=== PATIENT | male | born 1970 | race Caucasian/White ===

== ENCOUNTER 2018-03-16 13:33 | Emergency (ER) | payer SELFPAY ==
[2018-03-16 14:30] LABS: #Eosinphils 0.1 thou/uL (0.0-0.7); #Lymphocytes 2.4 thou/uL (1.20-3.40); #Monocytes 0.4 thou/uL (0.11-0.59); #Neutrophils 4.5 thou/uL (1.40-6.50); %Basophils 0.5 % (0.0-1.0); %Eosinophils 0.7 % (0.0-10.0); %Lymphocytes 32.1 % (21.0-51.0); %Neutrophils 60.7 % (42.0-75.0); Hemoglobin 14.9 g/dL (14.0-18.0); Mean Corpuscular HGB CONC 34.3 g/dL (32.0-36.0); Mean Corpuscular Hemoglobin 31.8 pg (27.0-31.0); Mean Corpuscular Volume 92.7 fL (78.0-98.0); Mean Platelet Volume 8.8 fL (7.4-10.4); Platelet Count 213 thou/uL (130-400); RBC Distribution Width 11.2 % (11.5-14.5); Red Blood Cell (RBC) Count 4.69 mill/uL (4.70-6.10); White Blood Cell (WBC) Count 7.4 thou/uL (4.8-10.8)
[2018-03-16 15:05] LABS: ALT (SGPT) 31 U/L (8-55); AST (SGOT) 15 U/L (5-34); Albumin 4.4 g/dL (3.5-5.0); Alkaline Phosphatase 125 U/L (40-150); Anion Gap 14 mmol/L (10-20); BUN (Urea Nitrogen) 10 mg/dL (8.9-20.6); Bilirubin, Total 0.4 mg/dL (0.2-1.2); Calc. Creatinine Clearance 0 mL/min (70-130); Calcium 9.8 mg/dL (7.8-10.44); Carbon Dioxide 26 mmol/L (22-29); Chloride 103 mmol/L (98-107); Estimated GFR-MDRD 51; Globulin 3.4 g/dL (2.4-3.5); Glucose 98 mg/dL (70-105); Potassium 4.3 mmol/L (3.5-5.1); Protein, Total 7.8 g/dL (6.0-8.3); Sodium 139 mmol/L (136-145)
--- NOTE | 2018-03-16 17:06 | MRI ---
MRI OF THE LUMBAR SPINE WITHOUT CONTRAST 03/16/18 HISTORY: Difficulty walking, left lower extremity numbness, pain. TECHNIQUE: Multiplanar and multisequence MR imaging of lumbar spine obtained without contrast. FINDINGS: The sagittal STIR imaging demonstrates no focal area of osseous marrow edema. Superficial round lesion seen within the subcutaneous soft tissues posteriorly on the right suggestin g a probable sebaceous cyst measuring 1.4 cm at the axial level of the lumbosacral junction. 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 Sagittal STIR imagin g demonstrates no focal area of osseous marrow edema. No anterolisthesis or retrolisthesis is noted w ithin the lumbar spine. T12-L1: Mild bilateral facet hypertrophy. Mild central canal stenosis with no neural foraminal stenos is. Intervertebral disc height and signal intensity within normal limits. L1-2: Mild bilateral facet hypertrophy. Mild central canal stenosis with no neural foraminal stenosis . Intervertebral disc height and signal intensity within normal limits. L2-3: Mild bilateral facet hypertrophy. Mild central canal stenosis. No neural foraminal stenosis. In tervertebral disc height and signal intensity within normal limits. L3-4: Mild bilateral facet hypertrophy. Mild central canal stenosis. No neural foraminal stenosis. Th e intervertebral disc height and signal intensity within normal limits. L4-5: Disc space narrowing, disc desiccation and disc bulge noted. There is a disc extrusion with inf erior migration in the left paracentral/left foraminal region. This extends into the left lateral rec ess with severe left lateral recess stenosis. Herniated disc material measures approximately 1.1 cm t ransverse dimension, 1 cm AP dimension and 1.4 cm craniocaudal dimension. In addition to the severe l eft lateral recess stenosis, there is mild left neural foraminal stenosis. L5-S1: There is disc space narrowing and disc desiccation and a central annular tear. No significant central canal stenosis. Mild bilateral facet hypertrophy. Mild bilateral neural foraminal stenosis. The imaged retroperitoneal structures demonstrate no acute findings. IMPRESSION: Left paracentral/left foraminal disc extrusion on the left at L4-5 with severe left lateral recess st enosis. POS: [facility]
[2018-03-16] MEDS ORDERED: Dexamethasone 10 MG/ML VIAL ONE (17:21)
[2018-03-16 17:34] LABS: Bilirubin Negative (Negative); Blood, Urine Negative (Negative); Clarity CLEAR (Clear); Glucose, Urine (Dipstick) Negative (Negative); Leukocyte Negative (Negative); Nitrite Negative (Negative); Protein, Urine (Dipstick) Negative (Neg-Trace); Specific Gravity, Urine 1.018 (1.002-1.036)
== END 2018-03-16 17:26 | disposition home or self-care (01) ==
LOC: ERS 13:33
DX: M54.16 Radiculopathy, lumbar region (principal); B20 Human immunodeficiency virus [HIV] disease; E78.5 Hyperlipidemia, unspecified; I10 Essential (primary) hypertension; F41.9 Anxiety disorder, unspecified; F32.9 Major depressive disorder, single episode, unspecified; F17.210 Nicotine dependence, cigarettes, uncomplicated; Z79.82 Long term (current) use of aspirin; Z79.899 Other long term (current) drug therapy
CPT/HCPCS: 36415; 51701; 72148; 80053; 81003; 85025; 94760; J1100

== ENCOUNTER 2018-05-03 00:32 | Outpatient (CLI) | payer OTHER, SELFPAY ==
[2018-05-03 16:55] LABS: Hemoglobin 15.2 g/dL (14.0-18.0); Mean Corpuscular HGB CONC 33.5 g/dL (32.0-36.0); Mean Corpuscular Hemoglobin 31.6 pg (27.0-31.0); Mean Corpuscular Volume 94.3 fL (78.0-98.0); Mean Platelet Volume 9.6 fL (7.4-10.4); Platelet Count 210 thou/uL (130-400); RBC Distribution Width 11.8 % (11.5-14.5); White Blood Cell (WBC) Count 6.4 thou/uL (4.8-10.8)
[2018-05-03 17:19] LABS: Anion Gap 13 mmol/L (10-20); BUN (Urea Nitrogen) 8 mg/dL (8.9-20.6); Calc. Creatinine Clearance 0 mL/min (70-130); Calcium 9.8 mg/dL (7.8-10.44); Carbon Dioxide 24 mmol/L (22-29); Chloride 104 mmol/L (98-107); Estimated GFR-MDRD 77; Glucose 94 mg/dL (70-105); Potassium 3.6 mmol/L (3.5-5.1); Sodium 137 mmol/L (136-145)
== END 2018-05-03 00:33 | disposition home or self-care (01) ==
LOC: LABBT 00:32
PROVIDERS: ATTEND Neurological Surgery
DX: Z01.818 Encounter for other preprocedural examination (principal)
CPT/HCPCS: 80048; 85027; 93005; 93010

== ENCOUNTER 2018-05-07 06:15 | Day surgery (SDC) | payer OTHER ==
[2018-05-03 15:28] VITALS: BMI 30.4
[2018-05-07] MEDS ORDERED: Sodium Chloride 0.9% 10 ML ONE (06:24)
[2018-05-07] MEDS ORDERED: Midazolam HCl 2 mg/2 ml Vial ONE (07:09)
[2018-05-07] MEDS ORDERED: Fentanyl 250 MCG/5 ML VIAL ONE (07:31)
[2018-05-07] MEDS ORDERED: Fentanyl 100 MCG/2 ML VIAL ONE ×2 (09:45→10:20)
[2018-05-07] MEDS ORDERED: HYDROcodone/Acetaminophen 5/325 mg Tablet ONE (11:50)
--- NOTE | 2018-05-07 14:01 | OP ---
DATE OF PROCEDURE: 05/07/2018 BLACK BELT: Maribell Cho PA-C PROCEDURE PERFORMED: Left L4-L5 laminectomy, facetectomy, foraminotomy, interbody arthrodesis, intervertebral biomechanical device, local morselized autograft, demineralized bone matrix, posterolateral arthrodesis, pedicle screw instrumentation at L4-L5. DESCRIPTION OF PROCEDURE: The patient was brought to the operating room and intubated. He was rolled in a prone position on gel-filled chest rolls. The previous incision was reopened and the L4-L5 level was exposed. We did identify previous scar from prior hemilaminotomy. We performed a complete L4-L5 exposure and then a left L4-L5 laminectomy, facetectomy, and foraminotomy. Along the left L5 pedicle, there was a large disk extrusion that was removed and a complete decompression of left L5 was achieved. The disk itself was incised and debrided and the bony endplates decorticated for the purpose of arthrodesis. An appropriate-sized intervertebral biomechanical PEEK device was brought in the field. It was filled with demineralized bone matrix, local morselized autograft, and tapped in place securely at L4-L5. Next, pedicle screws were placed at left L4 and left L5 using lateral fluoroscopic guidance and the position was confirmed by x-ray. The anshul was secured between the screws, connected by nuts, which were final tightened. The wound was then extensively irrigated and maximum hemostasis was secured. A combination of demineralized bone matrix and local morselized autograft was laid over the right lamina and posterolateral surfaces for the purpose of arthrodesis. Vancomycin powder was applied and the wound was then closed in anatomic layers. Job ID: [id number]
[2018-05-07] MEDS ORDERED: PROPOFOL 200 MG/20 ML VIAL ONE (15:26)
[2018-05-07] MEDS ORDERED: Glycopyrrolate 0.2 MG/ML 5 ML SYRINGE ONE (15:26)
[2018-05-07] MEDS ORDERED: PHENYLEPHRINE-NS 100 MCG/ML 10 ML SYRINGE ONE (15:26)
[2018-05-07] MEDS ORDERED: Rocuronium Bromide 10 MG/ML (10ML VIAL) ONE (15:26)
[2018-05-07] MEDS ORDERED: Ondansetron PF 4 MG/2 ML Vial ONE (15:26)
== END 2018-05-07 13:22 | disposition home or self-care (01) ==
LOC: SDC 06:15
PROVIDERS: ATTEND Neurological Surgery
PROC: 0ST20ZZ Resection of Lumbar Vertebral Disc, Open Approach (ICD-10-PCS; principal; 2018-05-07)
PROC: 0SG00AJ Fusion of Lumbar Vertebral Joint with Interbody Fusion Device, Posterior Approach, Anterior Column, Open Approach (ICD-10-PCS; principal; 2018-05-07)
DX: M51.36 Other intervertebral disc degeneration, lumbar region (principal); Z21 Asymptomatic human immunodeficiency virus [HIV] infection status
CPT/HCPCS: 76000; C1713; C1768; J2250; J2405; J2704; J3010; J3370; J3490

== ENCOUNTER 2018-05-22 10:54 | Outpatient (CLI) | payer OTHER ==
--- NOTE | 2018-05-22 11:33 | RAD ---
TWO VIEWS LUMBAR SPINE: HISTORY: Lumbar radiculopathy, M54.16. FINDINGS: AP and lateral views lumbar spine demonstrate 5 [id number] lumbar vertebrae. The patient has espinoza d a left-sided hemifusion of the L4 and L5 level. Screws and intervertebral disk hardware is in plac e. Mild changes of spondylosis seen at the L4-5 and L5-S1 levels. IMPRESSION: L4-5 surgical fusion. Left-sided screws are in good position. No evidence of osseous lesions seen. POS: [facility]
== END 2018-05-22 10:55 | disposition home or self-care (01) ==
LOC: TBSIIMAG 10:54
PROVIDERS: ATTEND Neurological Surgery
DX: M54.16 Radiculopathy, lumbar region (principal); Z98.1 Arthrodesis status
CPT/HCPCS: 72100

== ENCOUNTER 2018-07-04 14:25 | Outpatient (CLI) | payer OTHER ==
--- NOTE | 2018-07-04 14:49 | RAD ---
Lumbar spine 2 views: 07/04/2018 COMPARISON: 05/22/2018 HISTORY: Lumbar spine evaluation following surgery FINDINGS: No interval change in location of left pedicle screw at L4 and L5. Stable intervertebral di sc device at L4-5. Lumbar pedicles appear intact on frontal imaging. No acute osseous abnormality. IMPRESSION: Unchanged location of postoperative hardware. No acute osseous abnormality.
--- NOTE | 2018-07-04 14:50 | RAD ---
Frontal and lateral imaging thoracic spine-3 views: 07/04/2018 COMPARISON: None HISTORY: Upper back pain FINDINGS: Frontal, lateral, and swimmer's lateral views provided. At T10-11 and T11-12 there is disc space narrowing with anterior osteophyte formation and anterior subchondral sclerosis. No displaced fracture or evidence of dislocation. IMPRESSION: Degenerative disc disease. No acute osseous abnormality.
== END 2018-07-04 14:26 | disposition home or self-care (01) ==
LOC: TBSIIMAG 14:25
PROVIDERS: ATTEND Neurological Surgery
DX: M51.36 Other intervertebral disc degeneration, lumbar region (principal); M54.6 Pain in thoracic spine; M51.34 Other intervertebral disc degeneration, thoracic region; Z98.890 Other specified postprocedural states
CPT/HCPCS: 72072; 72100

== ENCOUNTER 2018-07-16 10:28 | Emergency (ER) | payer SELFPAY ==
[~2018-07-16 10:28] MED LIST: Gadobenate Dimeglumine 529 MG/1 ML (20ML VIAL) ONE
[2018-07-16 12:44] LABS: #Eosinphils 0.1 thou/uL (0.0-0.7); #Lymphocytes 1.7 thou/uL (1.20-3.40); #Monocytes 0.4 thou/uL (0.11-0.59); #Neutrophils 5.2 thou/uL (1.40-6.50); %Basophils 0.4 % (0.0-1.0); %Eosinophils 0.9 % (0.0-10.0); %Lymphocytes 22.5 % (21.0-51.0); %Monocytes 5.5 % (0.0-10.0); %Neutrophils 70.7 % (42.0-75.0); Hemoglobin 15.5 g/dL (14.0-18.0); Mean Corpuscular HGB CONC 34.2 g/dL (32.0-36.0); Mean Corpuscular Hemoglobin 32.7 pg (27.0-31.0); Mean Corpuscular Volume 95.5 fL (78.0-98.0); Mean Platelet Volume 9.1 fL (7.4-10.4); Platelet Count 177 thou/uL (130-400); RBC Distribution Width 11.2 % (11.5-14.5); Red Blood Cell (RBC) Count 4.75 mill/uL (4.70-6.10); White Blood Cell (WBC) Count 7.3 thou/uL (4.8-10.8)
[2018-07-16 13:05] LABS: ALT (SGPT) 43 U/L (8-55); AST (SGOT) 21 U/L (5-34); Albumin 4.1 g/dL (3.5-5.0); Alkaline Phosphatase 140 U/L (40-150); Anion Gap 11 mmol/L (10-20); BUN (Urea Nitrogen) 9 mg/dL (8.9-20.6); Bilirubin, Total 0.5 mg/dL (0.2-1.2); Calc. Creatinine Clearance 0 mL/min (70-130); Calcium 9.6 mg/dL (7.8-10.44); Carbon Dioxide 26 mmol/L (22-29); Chloride 103 mmol/L (98-107); Estimated GFR-MDRD 66; Globulin 3.2 g/dL (2.4-3.5); Glucose 96 mg/dL (70-105); Protein, Total 7.3 g/dL (6.0-8.3); Sodium 136 mmol/L (136-145)
[2018-07-16 13:40] LABS: Bilirubin Negative (Negative); Blood, Urine Negative (Negative); Clarity CLEAR (Clear); Glucose, Urine (Dipstick) 250 mg/dL (Negative); Leukocyte Negative (Negative); Nitrite Negative (Negative); Protein, Urine (Dipstick) Negative (Neg-Trace); Specific Gravity, Urine 1.031 (1.002-1.036); Urobilinogen 0.2 mg/dL (0.2-1.0); pH, Urine 6.5 (5.0-9.0)
[2018-07-16] MEDS ORDERED: Lidocaine 1% (PF) 30 ML VIAL ONE (14:34)
--- NOTE | 2018-07-16 14:52 | MRI ---
MRI Lumbar Spine W WO Con History: [Evaluate for abscess. Surgery. Left leg numbness.] Comparison: Radiograph July 04, 2018 Findings: No hydronephrosis. No retroperitoneal adenopathy. Aortic contour is normal. The conus medullaris terminates near the superior endplate of L1. Evidence of recent surgery with left unilateral L4-L5 posterior spinal fusion hardware and discectomy change. There is a postoperative seroma around the L4/L5 spinous processes. Inflammation of the posterior par aspinal musculature. Extensive susceptibility along the hardware. Congenitally foreshortened pedicles. Levels are as follows: L1/L2: Normal disc. No neural foraminal or spinal canal narrowing. L2/L3: Normal disc. No neural foraminal or spinal canal narrowing. Mild facet arthropathy. L3/L4: Small bilateral subforaminal posterior disc osteophyte complexes. Mild left neural foraminal n arrowing. L4/L5: There appears be removal of the extruded disc. There are moderate bilateral subcutaneous osteo phytes. There is extensive enhancement in the left lateral recess and subforaminal zone. L5/S1: Mild disc desiccation. Broad-based posterior disc bulge with bilateral subcutaneous posterior disc osteophyte complexes. Large central annular fissure. Mild facet arthrosis. Moderate bilateral neural foraminal narrowing. Likely sebaceous cyst right posterior paraspinal subcutaneous fat at the level of S1. Impression: Enhancement of the left L4/L5 lateral recess and subforaminal zone along with the exiting nerve root likely postsurgical from discectomy changes. No evidence for an abscess. Expected postoperative seroma.
[2018-07-16] MEDS ORDERED: Ondansetron ODT 4 MG TAB ONE (15:53)
== END 2018-07-16 16:05 | disposition home or self-care (01) ==
LOC: ERS 10:28
DX: L02.212 Cutaneous abscess of back [any part, except buttock and flank] (principal); B20 Human immunodeficiency virus [HIV] disease; E78.5 Hyperlipidemia, unspecified; I10 Essential (primary) hypertension; F41.9 Anxiety disorder, unspecified; F32.9 Major depressive disorder, single episode, unspecified; F17.210 Nicotine dependence, cigarettes, uncomplicated; F17.220 Nicotine dependence, chewing tobacco, uncomplicated; Z79.899 Other long term (current) drug therapy; Z98.890 Other specified postprocedural states
CPT/HCPCS: 10060; 36415; 72158; 80053; 81003; 83605; 85025; 85652; 86140; A9577; J2001; Q0162

== ENCOUNTER 2019-08-30 07:17 | Day surgery (SDC) | payer BC ==
[2019-08-29 16:48] VITALS: BMI 31.7
[2019-08-30 07:44] VITALS: BP 127/79; TEMP 98.2
--- NOTE | 2019-08-30 08:19 | RAD ---
RADIOGRAPH LUMBAR SPINE 4 VIEWS: DATE: 08/30/2019 HISTORY: 49-year-old male with postlaminectomy syndrome COMPARISON: 07/04/2018 TECHNIQUE: AP view. Lateral views in flexion, extension, and neutral. FINDINGS: Review of thoracic spine radiograph of 07/04/2018 demonstrates 11 paired ribs. The first nonrib-bearing vertebra will be designated as T12 rather than L1. The most caudal lumbar-type vertebra will be designated as L5. There are left unilateral pedicle screws at L4 and L5. Metallic markers for interbody cage at the mildly-moderately narrowed L4-5 disc space. No osseous candice dges between the L4 and L5 endplates. There is also mild to moderate disc space narrowing at L5-S1. All the rest of the lumbar vertebral body heights are maintained. No spondylolisthesis. No instability between flexion and extension. No high-grade scoliosis. Vertebral body heights are maintained. No interval change on the AP and neutral lateral views. IMPRESSION: 1) transitional vertebra at thoracolumbar junction. 2) unilateral left pedicle screws and interbody cage at L4-5. 3) no instability. 4) no interval change.
--- NOTE | 2019-08-30 08:57 | RAD ---
Exam: Lumbar myelogram HISTORY: Postlaminectomy syndrome Exposure: 0.3 minutes, 91.4 mcg/sq m FINDINGS: Successful lumbar myelogram. A total of 10 cc of Isovue-M 200 contrast was administered int rathecally. No immediate or postprocedure complications TECHNIQUE: Consent obtained to perform a lumbar myelogram. L3-L4 level was deemed appropriate. Skin w as prepped and draped in a sterile fashion. 1% lidocaine, buffered with sodium bicarbonate was used for local anesthesia. Under fluoroscopic guidance, 22-gauge spinal needle was advanced into the CSF s pace. Prompt flow of clear CSF into the hub of the needle. Via a short tubing catheter, 10 cc of Isovue-M 200 contrast was administered intrathecally. Patient tolerated the procedure well. No immedi ate or postprocedure complications. IMPRESSION: Successful lumbar myelogram.
--- NOTE | 2019-08-30 09:45 | CT ---
LUMBAR SPINE CT POST MYELOGRAM: COMPARISON: None. CORRELATION: Lumbar spine MRI 07/16/2018. FINDINGS: Five lumbar-type vertebrae. Lumbar spine vertebral body height are maintained. There is no fracture. There is a left-sided transpedicular screw at L4-L5 without perihardware lucency. L4-L5 disc prosthesis. No spondylolisthesis or spondylolysis. Conus medullaris terminates at the mid L1 level Appropriate attenuation of the visualized paraspinal muscles and solid organs. Visualized alimentary canal does not demonstrate an acute abnormality. No retroperitoneal or paraspinal mass, lymphadenopathy or hematoma. Normal caliber aorta. Visualized bony pelvis is intact. Presacral fat is preserved. T11-T12: No significant central canal stenosis or significant neural foraminal narrowing. T12-L1: No significant central canal stenosis or significant neural foraminal narrowing. L1-L2: No significant central canal stenosis or significant neural foraminal narrowing. L2-L3: No significant central canal stenosis or significant neural foraminal narrowing. L3-L4: No significant central canal stenosis or significant neural foraminal narrowing. L4-L5: Disc prosthesis. Left hemilaminectomy defect. Broad-based soft tissue density abuts the thecal sac and encroaches upon the subarticular zones. Minimal effacement of the traversing left L5 nerve roots. Mild central canal stenosis. Mild bilateral foraminal narrowing predominantly due to disc mate rial. L5-S1: No significant central canal stenosis. Mild bilateral neural foraminal narrowing. IMPRESSION: 1. Left-sided transpedicular screw at L4-L5. No significant spondylolisthesis. 2. No significant central canal stenosis or significant neural foraminal narrowing throughout the lum bar spine. Transcribed Date/Time: 08/30/2019 10:04 AM
[2019-08-30] MEDS ORDERED: Iopamidol-M 200 41% 20 ML VIAL ONE (10:19)
== END 2019-08-30 09:30 | disposition home or self-care (01) ==
LOC: RAD 07:17
PROVIDERS: ATTEND Nurse Practitioner Family
PROC: B02B1ZZ Computerized Tomography (CT Scan) of Spinal Cord using Low Osmolar Contrast (ICD-10-PCS; principal; 2019-08-30)
DX: M96.1 Postlaminectomy syndrome, not elsewhere classified (principal); M51.34 Other intervertebral disc degeneration, thoracic region; F32.9 Major depressive disorder, single episode, unspecified; Z79.899 Other long term (current) drug therapy; Z21 Asymptomatic human immunodeficiency virus [HIV] infection status
CPT/HCPCS: 62304; 72120; 72132; Q9966

== ENCOUNTER 2019-09-02 17:50 | Emergency (ER) | payer BC ==
[~2019-09-02 17:50] MED LIST changes: -Gadobenate Dimeglumine 529 MG/1 ML (20ML VIAL) ONE; +Iopamidol-370 76% 500 ML 1 ML ONE
[2019-09-02] MEDS ORDERED: Adacel (T-DAP) 0.5 ML SYRINGE ONE (17:59)
[2019-09-02 18:09] LABS: #Basophils 0.1 thou/uL (0.0-0.2); #Eosinphils 0.1 thou/uL (0.0-0.7); #Lymphocytes 1.7 thou/uL (1.20-3.40); #Monocytes 0.6 thou/uL (0.11-0.59); #Neutrophils 9.1 thou/uL (1.40-6.50); %Basophils 0.4 % (0.0-1.0); %Eosinophils 0.8 % (0.0-10.0); %Lymphocytes 14.8 % (21.0-51.0); %Monocytes 4.8 % (0.0-10.0); %Neutrophils 79.2 % (42.0-75.0); Hemoglobin 16.4 g/dL (14.0-18.0); Mean Corpuscular Hemoglobin 34.5 pg (27.0-31.0); Mean Corpuscular Volume 98.7 fL (78.0-98.0); Mean Platelet Volume 9.4 fL (7.4-10.4); Platelet Count 184 thou/uL (130-400); RBC Distribution Width 11.2 % (11.5-14.5); Red Blood Cell (RBC) Count 4.74 mill/uL (4.70-6.10); White Blood Cell (WBC) Count 11.5 thou/uL (4.8-10.8)
--- NOTE | 2019-09-02 18:24 | RAD ---
XR Knee Rt 4 View STANDARD History: Fall. Pain Comparison: None. Findings: Moderate anteromedial soft tissue swelling. Concern for nondisplaced obliquely oriented fra cture of the posterior aspect medial tibial plateau at the medial tibial rim. Impression: Nondisplaced peripheral posterior medial tibial plateau fracture.
--- NOTE | 2019-09-02 18:25 | RAD ---
XR Pelvis AP STANDARD History: Fall Comparison: None. Findings: Femoral heads and necks are intact. Obturator rings are intact. No SI joint widening. Left unilateral L4-L5 posterior spinal fusion hardware discectomy change. Impression: No acute fracture of the pelvis.
--- NOTE | 2019-09-02 18:26 | RAD ---
XR Hip Rt 2-3 View History: Fall. Trauma Comparison: None. Findings: Right femoral head and neck are intact. Right obturator ring is intact. No acute fracture. Impression: No acute right hip fracture.
[2019-09-02] MEDS ORDERED: Ondansetron PF 4 MG/2 ML Vial ONE (18:27)
[2019-09-02] MEDS ORDERED: Morphine 4 MG/ML VIAL ONE (18:27)
--- NOTE | 2019-09-02 18:27 | CT ---
CT Brain WO Con History: Fall Comparison: None. Findings: No acute hemorrhage or infarct. No midline shift or mass effect. Ventricular size and extra -axial CSF spaces are normal. Calvarium is intact. Paranasal sinuses and mastoids are clear aside from a left maxillary mucosal ret ention cyst. Impression: No acute posttraumatic intracranial sequela.
--- NOTE | 2019-09-02 18:31 | CT ---
CT Cervical Spine WO Con History: Fall. Trauma Comparison: None. Findings: The occipital condyles are intact. The odontoid process is intact. No acute fracture or mal alignment of the cervical spine. No acute traumatic facet joint widening. Lung apices are relatively clear. Minimal right apical paraseptal emphysema. The spinous processes are intact. The transverse processes are intact. Impression: No acute fracture or malalignment of the cervical spine.
[2019-09-02 18:32] LABS: ALT (SGPT) 36 U/L (8-55); AST (SGOT) 25 U/L (5-34); Albumin 4.6 g/dL (3.5-5.0); Alkaline Phosphatase 99 U/L (40-110); Anion Gap 14 mmol/L (10-20); BUN (Urea Nitrogen) 12 mg/dL (8.9-20.6); Bilirubin, Total 0.4 mg/dL (0.2-1.2); Calc. Creatinine Clearance 0 mL/min (70-130); Carbon Dioxide 24 mmol/L (22-29); Chloride 104 mmol/L (98-107); Estimated GFR-MDRD 56; Globulin 3.5 g/dL (2.4-3.5); Glucose 106 mg/dL (70-105); Potassium 3.9 mmol/L (3.5-5.1); Protein, Total 8.1 g/dL (6.0-8.3); Sodium 138 mmol/L (136-145)
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
[2019-09-02] MEDS ORDERED: Ondansetron ODT 4 MG TAB ONE (20:23)
== END 2019-09-02 20:26 | disposition home or self-care (01) ==
LOC: ERS 17:50
DX: S82.144A Nondisplaced bicondylar fracture of right tibia, initial encounter for closed fracture (principal); Z79.899 Other long term (current) drug therapy; W14.XXXA Fall from tree, initial encounter
CPT/HCPCS: 70450; 71260; 72125; 72170; 74177; 80053; 85025; 86850; 86900; 86901; 90471; 90715; 96374; 96375; G0390; J2270; J2405; Q0162; Q9967

== ENCOUNTER 2019-09-25 11:56 | Outpatient (CLI) | payer BC ==
--- NOTE | 2019-09-25 13:45 | MRI ---
EXAM: MRI thoracic spine without contrast HISTORY: Back pain with possible compression fracture COMPARISON: CT of the spine 09/02/2019 TECHNIQUE: Multiplanar multisequence MR images were obtained of the thoracic spine without contrast. FINDINGS: There is slight compression of the superior endplate of T11 with high T2 signal in this endplate. Hei ght loss is less than 10%. The visualized cord demonstrates normal signal throughout. The prevertebral soft tissues are unremarkable. No paraspinal soft tissue abnormality is seen. T1/2: No significant posterior bulge or protrusion. No posterior facet arthrosis. No central canal stenosis. No neural foraminal stenosis. T2/3: No significant posterior bulge or protrusion. No posterior facet arthrosis. No central canal stenosis. No neural foraminal stenosis. T3/4: No significant posterior bulge or protrusion. No posterior facet arthrosis. No central canal stenosis. No neural foraminal stenosis. T4/5: No significant posterior bulge or protrusion. No posterior facet arthrosis. No central canal stenosis. No neural foraminal stenosis. T5/6: No significant posterior bulge or protrusion. No posterior facet arthrosis. No central canal stenosis. No neural foraminal stenosis. T6/7: No significant posterior bulge or protrusion. No posterior facet arthrosis. No central canal stenosis. No neural foraminal stenosis. T7/8: No significant posterior bulge or protrusion. No posterior facet arthrosis. No central canal stenosis. No neural foraminal stenosis. T8/9: No significant posterior bulge or protrusion. No posterior facet arthrosis. No central canal stenosis. No neural foraminal stenosis. T9/10: No significant posterior bulge or protrusion. No posterior facet arthrosis. No central canal stenosis. No neural foraminal stenosis. T10/11: No significant posterior bulge or protrusion. No posterior facet arthrosis. No central aleksandr l stenosis. No neural foraminal stenosis. T11/12: No significant posterior bulge or protrusion. No posterior facet arthrosis. No central aleksandr l stenosis. No neural foraminal stenosis. T12/L1: No significant posterior bulge or protrusion. No posterior facet arthrosis. No central aleksandr l stenosis. No neural foraminal stenosis. IMPRESSION: Abnormal marrow signal in the T11 superior endplate could represent degenerative change or a compress ion fracture with minimal height loss.
== END 2019-09-25 11:57 | disposition home or self-care (01) ==
LOC: BICMRI 11:56
PROVIDERS: ATTEND Specialist
DX: S22.008A Other fracture of unspecified thoracic vertebra, initial encounter for closed fracture (principal); R93.7 Abnormal findings on diagnostic imaging of other parts of musculoskeletal system
CPT/HCPCS: 72146